=== PATIENT | male | born 1950 | race Caucasian/White ===

== ENCOUNTER 2017-01-26 04:27 | Inpatient (IN) | payer BC ==
[~2017-01-26] VITALS: Ht 180.3 cm; Wt 125.8 kg
[2017-01-26 04:34] VITALS: Ht 180.3 cm; Wt 125.8 kg
[2017-01-26] MEDS ORDERED: ASPIRIN 324 MG CHEW PO STA (04:45)
[2017-01-26 04:57] LABS: BASO % 0.2 %; BASO ABS # 0.02 K/uL (0-0.2); COMPLETE YES; EOS % 2.1 %; HEMATOCRIT 43.8 % (42-52); IG% 0.2 %; LYMPH % 22.4 %; LYMPH ABS # 2.22 K/uL (1.2-3.4); MEAN CELL VOLUME 95.4 fL (80-100); MEAN CORPUSCULAR HEMOGLOBIN 30.9 pg (25-34); MEAN CORPUSCULAR HGB CONC 32.4 g/dl (32-36); MEAN PLATELET VOLUME 9.9 fL (7.4-10.4); MONO % 7.7 %; NEUT % 67.4 %; PLATELET COUNT 251 K/uL (130-400); RED BLOOD COUNT 4.59 M/uL (4.7-6.1); WHITE BLOOD COUNT 9.92 K/uL (4.8-10.8)
--- NOTE | 2017-01-26 05:05 | EMERGENCY ROOM VISIT NOTE ---
History Report prepared by Scribe: Lidya Pope Under the Supervision of: Dr. John Lopez D.O. First contact with patient: 04:44 Chief Complaint: CHEST PAIN Stated Complaint: SOB,CHEST PAIN,JAW PAIN,ARM PAIN Nursing Triage Summary: Pt c/o mid to right sided chest pain for greater than a month. Intermittent and goes down bilateral arms. Pt states he has been having increased shortness of breath as well. History of Present Illness The patient is a 67 year old male who presents to the Emergency Room with complaints of intermittent right sided chest pain for the past 1 month. Tonight he told his he thought he was "going to ", so she urged him to come to the ED. He took 4 baby Aspirin prior to the ED. The patient states his pain radiates into his bilateral arms and he has also experienced some jaw pain. He admits to increasing shortness of breath for the past few months. The patient denies any leg pain but admits to some increased swelling in the legs. He states he has never undergone a cardiac catheterization before. Source of History: patient Onset: 1 month SPRING FORMER HAND Position: chest Timing: intermittent Modifying Factors (Relieving): other (Aspirin) Associated Symptoms: + SOB Review of Systems See HPI for pertinent positives and negatives. A total of ten systems were reviewed and were otherwise negative. Past Medical & Surgical Medical Problems: (1) ACS (acute coronary syndrome) (2) Hypertension (3) WA (myocardial infarction) Social History Smoking Status: Former Smoker Alcohol Use: occasionally Drug Use: none Marital Status: Housing Status: lives with family Occupation Status: retired Current/Historical Medications Scheduled Olmesartan/Hctz (Benicar Hct 40/12.5), 1 TAB PO DAILY Scheduled PRN Diclofenac Sodium (Voltaren), 75 MG PO BID PRN for Pain Allergies Coded Allergies: No Known Allergies (Unverified , 01/26/17) Physical Exam Vital Signs Date Time Temp Pulse Resp B/P (MAP) Pulse Ox O2 Delivery O2 Flow Rate FiO2 01/26/17 05:48 81 18 114/74 96 Room Air 01/26/17 04:54 Room Air 01/26/17 04:52 93 01/26/17 04:52 96 Room Air 01/26/17 04:34 37.0 99 18 127/70 95 Room Air Physical Exam GENERAL: Awake, alert, well-appearing, in no distress HENT: Normocephalic, atraumatic. Oropharynx unremarkable. EYES: Normal conjunctiva. Sclera non-icteric. NECK: Supple. No nuchal rigidity. FROM. No JVD. RESPIRATORY: Crackles. CARDIAC: Tachycardic heart rate, normal rhythm. Extremities warm and well perfused. Pulses equal. ABDOMEN: Soft, non-distended. No tenderness to palpation. No rebound or guarding. No masses. RECTAL: Deferred. MUSCULOSKELETAL: Chest examination reveals no tenderness. The back is symmetrical on inspection without obvious abnormality. There is no CVA tenderness to palpation. No joint edema. LOWER EXTREMITIES: Calves are equal size bilaterally and non-tender. Bilateral LE pitting edema, calves are nontender. No discoloration. NEURO: Normal sensorium. No sensory or motor deficits noted. SKIN: No rash or jaundice noted. Medical Decision & Procedures ER Provider Diagnostic Interpretation: X ray results as stated below per my interpretation and interpretation. Other radiology results as stated below per my review and radiologist interpretation CHEST X-RAY Mild CHF seen on X-Ray. Laboratory Results 01/26/17 04:45 Red Blood Count 4.59, Mean Corpuscular Volume 95.4, Mean Corpuscular Hemoglobin 30.9, Mean Corpuscular Hemoglobin Concent 32.4, Mean Platelet Volume 9.9, Neutrophils (%) (Auto) 67.4, Lymphocytes (%) (Auto) 22.4, Monocytes (%) (Auto) 7.7, Eosinophils (%) (Auto) 2.1, Basophils (%) (Auto) 0.2, Neutrophils # (Auto) 6.69, Lymphocytes # (Auto) 2.22, Monocytes # (Auto) 0.76, Eosinophils # (Auto) 0.21, Basophils # (Auto) 0.02 01/26/17 04:45 Test 01/26/17 04:45 01/26/17 06:31 White Blood Count 9.92 K/uL (4.8-10.8) Red Blood Count 4.59 M/uL (4.7-6.1) Hemoglobin 14.2 g/dL (14.0-18.0) Hematocrit 43.8 % (42-52) Mean Corpuscular Volume 95.4 fL (80-100) Mean Corpuscular Hemoglobin 30.9 pg (25-34) Mean Corpuscular Hemoglobin Concent 32.4 g/dl (32-36) Platelet Count 251 K/uL (130-400) Mean Platelet Volume 9.9 fL (7.4-10.4) Neutrophils (%) (Auto) 67.4 % Lymphocytes (%) (Auto) 22.4 % Monocytes (%) (Auto) 7.7 % Eosinophils (%) (Auto) 2.1 % Basophils (%) (Auto) 0.2 % Neutrophils # (Auto) 6.69 K/uL (1.4-6.5) Lymphocytes # (Auto) 2.22 K/uL (1.2-3.4) Monocytes # (Auto) 0.76 K/uL (0.11-0.59) Eosinophils # (Auto) 0.21 K/uL (0-0.5) Basophils # (Auto) 0.02 K/uL (0-0.2) RDW Standard Deviation 49.7 fL (36.4-46.3) RDW Coefficient of Variation 14.2 % (11.5-14.5) Immature Granulocyte % (Auto) 0.2 % Immature Granulocyte # (Auto) 0.02 K/uL (0.00-0.02) Activated Partial Thromboplast Time 29.2 SECONDS (21.0-31.0) Partial Thromboplastin Ratio 1.1 Anion Gap 8.0 mmol/L (3-11) Est Creatinine Clear Calc Drug Dose 67.3 ml/min Estimated GFR () 59.0 Estimated GFR (Non- 50.9 BUN/Creatinine Ratio 14.7 (10-20) Calcium Level 8.6 mg/dl (8.5-10.1) Total Bilirubin 0.5 mg/dl (0.2-1) Direct Bilirubin 0.1 mg/dl (0-0.2) Aspartate Amino Transf (AST/SGOT) 73 U/L (15-37) Alanine Aminotransferase (ALT/SGPT) 35 U/L (12-78) Alkaline Phosphatase 62 U/L (45-117) Troponin I 6.790 ng/ml (0-0.045) Pro-B-Type Natriuretic Peptide 4508 pg/ml (0-900) Total Protein 7.5 gm/dl (6.4-8.2) Albumin 3.6 gm/dl (3.4-5.0) Lipase 91 U/L (73-393) Laboratory results reviewed by me Medications Administered Medications (Trade) Dose Ordered Sig/Daniel Route Start Time Stop Time Status Last Admin Dose Admin Furosemide (Lasix Inj) 40 mg NOW STAT IV 01/26/17 05:22 01/26/17 05:23 DC 01/26/17 05:45 40 MG Atorvastatin Calcium (Lipitor Tab) 80 mg QAM STAT PO 01/26/17 06:18 01/26/17 06:19 DC 01/26/17 06:33 80 MG Heparin Sodium/ Dextrose 1 ea NOW STAT N/A 01/26/17 06:18 01/26/17 06:19 DC 01/26/17 06:28 1 EA Heparin Sodium/ Dextrose (Heparin 25,000 Unit/500ml D5W) 25,000 unit STK-MED ONCE .ROUTE 01/26/17 06:24 01/26/17 06:25 DC 01/26/17 06:28 25,000 UNIT ECG Indication: chest pain Rate (beats per minute): 110 Rhythm: sinus tachycardia Findings: RBBB, no acute ischemic change, other (Left anterior hemiblock) ED Course 0459: The patient was evaluated in room B7. A complete history and physical exam was performed. 0522: Aspirin 40 mg IV. 0552: Nursing informed me the patients Troponin is 6.79. 0555: I discussed the patients case with Dr. Cooney, [facility] Hospitalist. The patient will be further evaluated. 0601: I reevaluated the patient. He is resting comfortably. I discussed my recommendation he remain in the hospital for further evaluation and management and he verbalized complete understanding and agreement. 0610: I discussed the patients case with Dr. Lane, [facility] Cardiology. The patient will be further evaluated. 0618: Heparin Sodium/Dextrose 1 ea NA, Lipitor 80 mg PO. 0630: Nitroglycerin 2% ointment 1 inch EXT. Medical Decision The differential diagnoses considered include angina, stable angina, ACS, acute WA and CHF. Patient is currently pain-free. Patient had taken aspirin prior arrival. Patient was given IV Lasix. Patient has evidence of acute coronary syndrome with an elevated troponin and elevated BNP. Reevaluation the patient states that he's had a left anterior hemiblock in the past. Patient is currently pain- free. The case was discussed with the hospitalist from [facility] for admission. I've also spoken to cardiology who would like the patient to receive IV heparin, Lipitor, Nitropaste; Medication Reconcilliation Current Medication List: was personally reviewed by me Blood Pressure Screening Patient's blood pressure: Normal blood pressure Blood pressure disposition: Did not require urgent referral Consults Time Called: 05 Consulting Physician: [facility] Returned Call: [phone] I discussed the patients case with [facility]. The patient will be further evaluated. Additional Consults: Time Called: 05 Consulted Physician: Dr. Lane [facility] Returned Call: [phone] Additional Comments: I discussed the patients case with Dr. Lane [facility]. The patient will be further evaluated. Impression Primary Impression: ACS (acute coronary syndrome) Additional Impression: CHF (congestive heart failure) Scribe Attestation The scribe's documentation has been prepared under my direction and personally reviewed by me in its entirety. I confirm that the note above accurately reflects all work, treatment, procedures, and medical decision making performed by me. Departure Information Dispostion Being Evaluated By Hospitalist Referrals No Doctor, Assigned (PCP) Patient Instructions My [facility] Problem Qualifiers
[2017-01-26 05:14] LABS: BUN/CREATININE RATIO 14.7 (10-20); CALCIUM 8.6 mg/dl (8.5-10.1); CREATININE 1.4 mg/dl (0.60-1.40); POTASSIUM 3.8 mmol/L (3.5-5.1)
[2017-01-26] MEDS ORDERED: FUROSEMIDE 40 MG/4 ML VIAL IV STA (05:22)
[2017-01-26] MEDS ORDERED: OLME40TA30 PO (06:07)
[2017-01-26] MEDS ORDERED: DICL75TA2 PO (06:08)
[2017-01-26] MEDS ORDERED: ATORVASTATIN 40 MG TAB PO STA (06:18)
[2017-01-26] MEDS ORDERED: HEPARIN 25000 UNIT/500 ML D5W ONE (06:24)
[2017-01-26 06:25] LABS: PARTIAL THROMBOPLASTIN RATIO 1.1
[2017-01-26] MEDS ORDERED: NITROGLYCERIN OINT 2% 1GM PACKET EXT ONE (06:30)
[2017-01-26] MEDS ORDERED: POTASSIUM CHLORIDE 10 MEQ TABCR PO STA (06:34)
[2017-01-26 06:40] VITALS: O2SAT 97
[2017-01-26] MEDS ORDERED: METOPROLOL TARTRATE 50 MG TAB PO STA (06:43)
[2017-01-26] MEDS ORDERED: NITROGLYCERIN 0.4 MG SL PER TAB CHARGE SL PRN (06:45)
[2017-01-26] MEDS ORDERED: LORAZEPAM 2 MG/ML 1 ML VIAL IV PRN (06:45)
[2017-01-26] MEDS ORDERED: LEVALBUTEROL/IPRATROPIUM NEB INH PRN (06:45)
[2017-01-26] MEDS ORDERED: MoRPHine SULFATE 2 MG/ML CARP IV PRN (06:45)
[2017-01-26] MEDS ORDERED: TRAMADOL HCL 50 MG TAB PO PRN (06:45)
[2017-01-26] MEDS ORDERED: ACETAMINOPHEN 325 MG TAB PO PRN (06:45)
[2017-01-26 06:47] LABS: MAGNESIUM 2.3 mg/dl (1.8-2.4); THYROID STIMULATING HORMONE 0.727 uIu/ml (0.300-4.500)
[2017-01-26 07:00] VITALS: BP 120/78; PULSE 84; TEMP 37; O2SAT 96; BMI 38.7
[2017-01-26 07:38] LABS: CHOLESTEROL/HDL RATIO 5.2
[2017-01-26] MEDS ORDERED: LEVALBUTEROL 1.25MG/0.5ML NEB INH PRN (07:45)
[2017-01-26] MEDS ORDERED: IPRATROPIUM BROMIDE NEB SOLN 0.02% 2.5 ML VIAL INH PRN (08:00)
--- NOTE | 2017-01-26 08:05 | HISTORY & PHYSICAL EXAMINATION ---
DATE OF ADMISSION: 01/26/2017 PRIMARY CARE DOCTOR: Mr. Danish Neves PA-C. CHIEF COMPLAINT: Chest pain, shortness of breath. HISTORY OF PRESENT ILLNESS: History is obtained from the patient, family, ER provider. Medical history significant for old heart attack as per patient, past tobacco abuse. About 12 years ago, patient claims he had an episode of chest pain, diaphoresis. 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 He refused to seek care. The last 2 months, increasing shortness of breath on exertion, fluid retention. Last 2 weeks, intermittent right-sided chest pain, sometimes pleuritic. No cough symptoms. This morning, patient decided it was time to seek care. At the Emergency Room, he received Lasix for CHF and aspirin possible ACS. MEDICAL HISTORY: As above. SURGERIES: Urologic procedures. HOME MEDICATIONS: None. ALLERGIES: No known drug allergies. FAMILY HISTORY: Heart disease, diabetes. PERSONAL AND SOCIAL HISTORY: Past tobacco abuse. No chronic intake of alcoholic beverages. [employer]. REVIEW OF SYSTEMS: As per HPI, all 10 systems reviewed, all other ROS negative. PHYSICAL EXAMINATION: VITAL SIGNS: Blood pressure was noted to be 111/60, pulse rate 90, RR 20_, temperature 37, sats 95 on room air. GENERAL: Noted to be obese, slightly uncomfortable, no respiratory distress, unkempt. SKIN: Normal color, warm. HEENT: [place] palpebral conjunctivae. Noted ptosis. Dry buccal mucosa. NECK: Short, supple. CHEST: Decreased breath sounds. No tenderness. CV: Regular rate and rhythm. Palpable LE pulses. ABDOMEN: Soft, some distension, nontender. EXTREMITIES: No edema, no tenderness. No gross deformities. NEUROLOGIC: Coherent. No gross focality. LABORATORIES: Hemoglobin was noted to be 14.2, hematocrit 42.8, white cell count 10, platelets 251. Sodium 134, potassium 3.8, CO2 24, BUN 20, creatinine 1.4, glucose 161. Troponin 6.79. BNP was 4508. Chest x-ray as per my interpretation, cardiomegaly, CHF, atelectasis. EKG as per my interpretation, rate 110, sinus tachycardia, LAD, LAFB, right bundle-branch block, TWI lateral leads. ASSESSMENT AND PLAN: 1. Right-sided chest pain plus troponin elevation pulmonary embolism versus acute coronary syndrome 2. congestive heart failure subacute symptoms ongoing for about 2 months 3. past tobacco abuse. 4. Hyperglycemia rule out DM PCU. Check D-dimer PE workup if D-dimer abnormal. Diuretic therapy. initiate low-dose beta nam. 2D echo. Cardio consult. RE CHF (ER provider already in touch with Dr. Lane) IV heparin as per exhibit specialist on-call Check hemoglobin A 1C DVT prophylaxis, Heparin. Full code. MTDD
--- NOTE | 2017-01-26 08:12 | DIAGNOSTIC IMAGING REPORT ---
SINGLE VIEW CHEST CLINICAL HISTORY: Atypical chest pain. FINDINGS: An AP, portable, upright chest radiograph is obtained. No prior studies are available for comparison at the time of dictation. The examination is degraded by portable technique and apical lordotic positioning. The heart is enlarged and there is atherosclerotic calcification of the thoracic aorta. There is pulmonary vascular congestion. Bilateral patchy airspace opacities are identified. No large pleural effusion or pneumothorax is seen. The skeletal structures are osteopenic. The bony thorax is grossly intact. Degenerative change is seen throughout the thoracic spine. Calcified joint bodies are noted in the left shoulder. IMPRESSION: 1. Cardiomegaly with evidence of congestive failure. 2. Bilateral airspace opacities are noted. This could represent a component of pulmonary edema and/or multifocal pneumonia. Clinical correlation will be essential. Radiographic follow-up to resolution is recommended. 3. No large pleural effusion is identified. Electronically signed by: Mariano Coleman M.D. 01/26/2017 8:11 AM Dictated Date/Time: 01/26/2017 8:10 AM
[2017-01-26] MEDS ORDERED: PERFLUTREN LIPID MICROSPHERE (DEFINITY) IV ONE (08:22)
[2017-01-26] MEDS ORDERED: METOPROLOL TARTRATE 25 MG TAB PO STA (10:11)
--- NOTE | 2017-01-26 10:11 | ECHOCARDIOGRAM REPORT ---
*NOTICE TO RECEIVING REPUBLICAN AGENCY This information is strictly Confidential and protected under [place] law. [place] law prohibits you from making any further disclosure of this information unless further disclosure is expressly permitted by the written consent of the person to whom it pertains or is authorized by law. A general authorization for the release of medical or other information is not sufficient for this purpose. Hospital accepts no responsibility if the information is made available to any other person, INCLUDING THE PATIENT. Interpretation Summary * Name: ADRIANNA HAWKINS Study Date: 01/26/2017 07:52 AM BP: 110/74 mmHg * Patient Location: C.2T\S\E221\S\1 HR: 85 * : 1950 (M/d/yyyy) Gender: Male Height: 71 in * Age: 67 yrs Ethnicity: [place] Weight: 277 lb * Ordering Physician: Juan Carlos Cooney * Referring Physician: Self, Referred * Performed By: Teresita Cunha RDCS * * Reason For Study: CHF * BSA: 2.4 m2 * The study was technically limited. * There is no comparison study available. * -- Conclusions -- * The left ventricle is mildly dilated. * Left ventricular systolic function is severely reduced. * Ejection Fraction = 20-25%. * The apex, anteroseptum, and anterior chapa are akinetic. * The remaining LV myocardial wall segements are severely hypokinetic to akinetic. * There is no pericardial effusion. Procedure Details * A complete two-dimensional transthoracic echocardiogram was performed (2D, M-mode, Doppler and color flow Doppler). * A contrast injection of Definity was performed to improve assessment of LV function. * Contrast was injected into an intravenous site in the left arm. * One vial of Definity ultrasound contrast was diluted in normal saline to a total volume of 10 ml. A total of '2' ml of solution was administered during imaging. * Lot # [id number] of Definity utilized for procedure. * Expiration date FEB 10. * The attending nurse who injected the contrast agent was Magalie Murray RN. Left Ventricle * The left ventricle is mildly dilated. * There is no thrombus. * There is normal left ventricular wall thickness. * Ejection Fraction = 20-25%. * Left ventricular systolic function is severely reduced. * The apex, anteroseptum, and anterior chapa are akinetic. The remaining LV myocardial wall segements are severely hypokinetic to akinetic. Right Ventricle * The right ventricle is grossly normal size. * The right ventricular systolic function is normal as assessed by tricuspid annular plane systolic excursion (TAPSE) (normal >1.5 cm). Atria * The left atrium is mildly dilated. * Right atrial size is normal. Mitral Valve * The anterior mitral valve leaflet is moderately thickened. * There is no mitral valve stenosis. * There is trace mitral regurgitation. Tricuspid Valve * The tricuspid valve is not well visualized. * There is no tricuspid stenosis. * Significant tricuspid regurgitation is absent. Aortic Valve * The aortic valve is not well visualized. * The aortic valve opens well. * No hemodynamically significant valvular aortic stenosis. * No aortic regurgitation is present. Pulmonic Valve * The pulmonary valve is not well seen, but the Doppler examination is normal without significant regurgitation or stenosis. Great Vessels * The aortic root is normal size. Pericardium/Pleural * There is no pericardial effusion. Left Ventricular Diastolic Function * Grade I diastolic dysfunction, (abnormal relaxation pattern). MMode 2D Measurements and Calculations IVSd 0.88 cm LVIDd 6.5 cm LVIDs 5.0 cm LVPWd 1.2 cm IVS/LVPW 0.70 FS 22.5 % EDV(Teich) 214.9 ml ESV(Teich) 119.7 ml EF(Teich) 44.3 % EDV(cubed) 272.7 ml ESV(cubed) 126.9 ml EF(cubed) 53.5 % LV mass(C)d 305.4 grams LV mass(C)dI 126.1 grams/m\S\2 SV(Teich) 95.2 ml SI(Teich) 39.3 ml/m\S\2 SV(cubed) 145.8 ml SI(cubed) 60.2 ml/m\S\2 Ao root diam 3.5 cm Ao root area 9.7 cm\S\2 ACS 2.1 cm LA dimension 3.9 cm asc Aorta Diam 3.7 cm LA/Ao 1.1 LVOT diam 2.0 cm LVOT area 3.2 cm\S\2 LVAd ap4 41.6 cm\S\2 LVLd ap4 9.1 cm EDV(MOD-sp4) 158.0 ml EDV(sp4-el) 161.5 ml LVAs ap4 34.7 cm\S\2 LVLs ap4 8.9 cm ESV(MOD-sp4) 111.7 ml ESV(sp4-el) 114.9 ml EF(MOD-sp4) 29.3 % EF(sp4-el) 28.8 % LVAd ap2 38.7 cm\S\2 LVLd ap2 9.0 cm EDV(MOD-sp2) 132.5 ml EDV(sp2-el) 141.4 ml LVAs ap2 33.4 cm\S\2 LVLs ap2 8.9 cm ESV(MOD-sp2) 99.8 ml ESV(sp2-el) 105.9 ml EF(MOD-sp2) 24.7 % EF(sp2-el) 25.1 % LVLd %diff -0.79 % EDV(MOD-bp) 144.6 ml LVLs %diff 0.42 % ESV(MOD-bp) 105.2 ml EF(MOD-bp) 27.2 % SV(MOD-sp4) 46.4 ml SI(MOD-sp4) 19.2 ml/m\S\2 SV(MOD-sp2) 32.7 ml SI(MOD-sp2) 13.5 ml/m\S\2 SV(MOD-bp) 39.4 ml SI(MOD-bp) 16.3 ml/m\S\2 SV(sp4-el) 46.6 ml SI(sp4-el) 19.2 ml/m\S\2 SV(sp2-el) 35.6 ml SI(sp2-el) 14.7 ml/m\S\2 Doppler Measurements and Calculations MV E max anthony 70.8 cm/sec MV A max anthony 82.5 cm/sec MV E/A 0.86 MV dec time 0.22 sec Ao V2 max 127.6 cm/sec Ao max PG 6.5 mmHg Ao max PG (full) 0.25 mmHg SNEHAL(V,A) 3.1 cm\S\2 SNEHAL(V,D) 3.1 cm\S\2 AI max anthony 329.8 cm/sec AI max PG 43.5 mmHg AI dec slope 190.5 cm/sec\S\2 AI P1/2t 507.0 msec LV V1 max PG 6.3 mmHg LV V1 max 125.1 cm/sec PA V2 max 120.8 cm/sec PA max PG 5.8 mmHg PA acc slope 1040.8 cm/sec\S\2 PA acc time 0.10 sec TR max anthony 93.8 cm/sec PA pr(Accel) 36.2 mmHg
[2017-01-26 11:01] LABS: PROTHROMBIN TIME (PATIENT) 10.7 SECONDS (9.0-12.0)
--- NOTE | 2017-01-26 11:02 | CARDIOLOGY CONSULTATION ---
DATE OF CONSULTATION: 01/26/2017 REFERRING PHYSICIAN: Dr. Juan Carlos Cooney. REASON FOR CONSULTATION: NSTEMI. HISTORY OF PRESENT ILLNESS: Mr. Chong is a 67-year-old gentleman who reports a 3-month history of progressive dyspnea on exertion as well as a 2-3 week history of chest discomfort. He describes waxing and waning chest pain described as a right-sided ache. Pain could last a few seconds up to a few minutes. Pain became somewhat worse last evening. He states, "I have had enough" and decided to come to the ER at approximately 4:00 a.m. In the ER, patient noted to be in congestive heart failure. Troponin is moderately elevated as well. The patient was treated with intravenous furosemide. An IV heparin infusion was initiated. He was admitted to the progressive care unit. The patient has diuresed moderately. He is feeling better from a respiratory standpoint. Denies any recurrent chest discomfort since arrival to the floor. Repeat troponins are pending. 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 He did not seek medical attention at that time. He has no prior history of stress testing or cardiac catheterization. He has never been seen by a fire inspector in the past. Currently, he is resting comfortably. Denies orthopnea, PND, or lower extremity edema. No palpitations, lightheadedness, dizziness, syncope or near syncope. REVIEW OF SYSTEMS: The pertinent positive noted above, comprehensive 10-system review is otherwise negative. PAST MEDICAL HISTORY: 1. Hypertension. 2. Possible history of myocardial infarction 12 years ago. PAST SURGICAL HISTORY: Denied. SOCIAL HISTORY: Former tobacco abuse. and lives with his . 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 OUTPATIENT MEDICATIONS: Benicar/HCTZ 40/12.5 one tablet daily, diclofenac 75 mg twice daily as needed. ALLERGIES: No known drug allergies. ECG on admission demonstrates sinus tachycardia with a right bundle-branch block, left anterior fascicular block, left ventricular hypertrophy, secondary ST-T wave abnormality. Chest x-ray on admission demonstrates congestive heart failure. LABORATORY DATA: D-dimer is less than 190. White blood cell count 9.92, hemoglobin is 14.2, platelet count is 251. Sodium 134, potassium 3.8, chloride 102, CO2 24, BUN 21, creatinine 1.40. Troponin 6.790. ProBNP 4508. Lipase is 91. Telemetry demonstrates sinus rhythm. PHYSICAL EXAMINATION: VITAL SIGNS: Temperature is 37 degrees centigrade, pulse 84 beats per minute and regular, respiratory rate 16 breaths per minute, blood pressure 120/70, SaO2 is 96% on room air. GENERAL: NAD, obese, awake, alert and oriented x3. HEENT: His mucous membranes are moist. There is no scleral icterus. The conjunctivae are pink. NECK: Supple. There is no JVD. HJR in the upright position. LUNGS: Demonstrate scattered crackles at the bases. No rhonchi or wheeze. HEART: Regular with a normal S1 and S2. There is no murmur, rub, or gallop. ABDOMEN: Soft and nontender. There is no rebound or guarding, normal bowel sounds. EXTREMITIES: Warm and dry without clubbing, cyanosis or edema. Dorsalis pedis pulses are 2/4 bilateral. Radial pulses are 2/4 bilateral. NEUROLOGIC: Demonstrates no focal deficit. FINAL IMPRESSION: 1. Non-ST elevation myocardial infarction. 2. Acute decompensated systolic heart failure. 3. Hypertension -- controlled. 4. Dyslipidemia -- patient received one dose of atorvastatin in the ED. 5. Possible remote history of myocardial infarction. 6. Former tobacco abuse. PLAN AND RECOMMENDATIONS: Intravenous heparin has been initiated. He will continue aspirin, high-dose statin at this time. I have ordered low-dose beta-nam therapy, Lopressor 12.5 mg twice daily. The patient is agreeable to a dose x1 now. A 0.5 inch of nitro paste will be placed topically for afterload reduction in the setting of acute systolic heart failure. I have ordered an additional dose of IV furosemide for 3:00 p.m. The risks, benefits, and alternatives to cardiac catheterization with coronary angiography were discussed at length. The patient is agreeable. Tentative plan for cardiac catheterization in the a.m., pending review of a.m. labs. Continue telemetry monitoring during hospitalization. Urgent cardiac catheterization would be considered with any recurrent anginal symptoms at rest despite optimal medical therapy. Thank you for allowing me to take part in the care of your patient.
[2017-01-26] MEDS: NITROGLYCERIN OINT 2% 1GM PACKET EXT SCH ×3 (11:30→22:43)
[2017-01-26 11:44] VITALS: BP 116/73; PULSE 81; TEMP 36.6; O2SAT 96
[2017-01-26 12:48] LABS: PARTIAL THROMBOPLASTIN RATIO 1.6
[2017-01-26] MEDS: HEPARIN 25,000 UNIT/500ML D5W 500 ML IV PRN ×3 (13:27→21:58)
[2017-01-26] MEDS ORDERED: HEPARIN IV BOLUS 4,000 UNIT in SYRINGE 0 ML IV ONE (13:30)
[2017-01-26] MEDS ORDERED: FUROSEMIDE INJ 40 MG in SYRINGE 0 ML IV ONE ×2 (15:00→16:00)
[2017-01-26 15:57] VITALS: BP 104/64; PULSE 78; TEMP 37.1; O2SAT 95
[2017-01-26] MEDS: METOPROLOL TARTRATE 25 MG TAB PO SCH (17:29)
--- NOTE | 2017-01-26 17:42 | Progress Note ---
Progress Note Date of Service Jan 26, 2017. Progress Note Patient seen and examined at bedside General: no acute distress Lungs: CTABL Chest: no chest pain Abdomen: soft, nontender, + bowel sounds Extremities: no edema Neuro: awake and alert, oriented to person, place, time Troponins during the day 6.79 to 9 to 11.2 Cardiac echo: The left ventricle is mildly dilated. Left ventricular systolic function is severely reduced. Ejection Fraction = 20-25%. The apex, anteroseptum, and anterior chapa are akinetic. The remaining LV myocardial wall segements are severely hypokinetic to akinetic. There is no pericardial effusion Patient's EKGs do not show evidence of ST Elevation He has been treated with IV heparin throughout the day for NSTEMI Patient is scheduled for cardiac cath on Friday01/27/17 Patient is not in acute distress and mental status at baseline. Have been visiting patient's room throughout the day and no apparent chest pain as per patient. With elevations in troponins have moved up the Metoprolol Tartrate 12.5mg scheduled from 9 PM to 5:30 PM. Continue to monitor on telemetry. May not need another dose of 12..5 mg Metoprolol if heart rate controlled. Will continue trending troponin. As per Dr. Lane, if patient experiences chest pain will need to call cardiology urgently because patient may need emergent cardiac cath in that situation.
[2017-01-26 20:00] VITALS: BP 131/77; PULSE 83; TEMP 36.7; O2SAT 94
[2017-01-26 21:06] LABS: PARTIAL THROMBOPLASTIN RATIO 2.7
[2017-01-27] VITALS (12 sets, daily range): BP systolic 102–113; BP diastolic 63–72; PULSE 69–77; TEMP 37–37.4; O2SAT 94–95
[2017-01-27 03:40] LABS: BASO % 0.4 %; BASO ABS # 0.03 K/uL (0-0.2); COMPLETE YES; EOS % 1.9 %; HEMATOCRIT 37.4 % (42-52); IG% 0.2 %; LYMPH % 21.4 %; LYMPH ABS # 1.83 K/uL (1.2-3.4); MEAN CELL VOLUME 94.7 fL (80-100); MEAN CORPUSCULAR HEMOGLOBIN 31.4 pg (25-34); MEAN CORPUSCULAR HGB CONC 33.2 g/dl (32-36); MEAN PLATELET VOLUME 9.7 fL (7.4-10.4); MONO % 8.4 %; NEUT % 67.7 %; PLATELET COUNT 205 K/uL (130-400); RED BLOOD COUNT 3.95 M/uL (4.7-6.1); WHITE BLOOD COUNT 8.56 K/uL (4.8-10.8)
[2017-01-27] MEDS: NITROGLYCERIN OINT 2% 1GM PACKET EXT SCH ×3 (03:55→16:00)
[2017-01-27 03:58] LABS: BUN/CREATININE RATIO 13.9 (10-20); CREATININE 1.22 mg/dl (0.60-1.40); POTASSIUM 3.4 mmol/L (3.5-5.1)
[2017-01-27 04:03] LABS: PARTIAL THROMBOPLASTIN RATIO 2.3
[2017-01-27] MEDS ORDERED: POTASSIUM CHLORIDE 20 MEQ TABCR PO STA (07:02)
[2017-01-27 08:32] LABS: ESTIMATED AVERAGE GLUCOSE 123 mg/dl; HA1C FLAG Normal (Normal)
[2017-01-27] MEDS ORDERED: ASPIRIN 325 MG ECTAB PO SCH (09:00)
[2017-01-27] MEDS ORDERED: MIDAZOLAM HCL 1 MG/ML 2ML VIAL ONE (09:53)
[2017-01-27] MEDS ORDERED: NITROGLYCERIN/D5W 100MCG/ML 20ML SYR ONE (09:54)
[2017-01-27] MEDS ORDERED: HEPARIN SOD (PORCINE) 1000 UNIT/ML 10 ML VIAL ONE (09:54)
[2017-01-27] MEDS ORDERED: FENTANYL CITRATE INJ 50 MCG/1 ML 2 ML VIAL ONE (09:54)
[2017-01-27] MEDS ORDERED: NiCARDipine HCL INJ 2.5 MG/ML 10 ML AMP ONE (09:54)
--- NOTE | 2017-01-27 11:14 | Procedure Note ---
Pre-Mod Sedation Assessment General Date of Moderate Sedation: Jan 27, 2017. Vital Signs: Vital Signs Past 12 Hours Date Time Temp Pulse Resp B/P (MAP) Pulse Ox O2 Delivery O2 Flow Rate FiO2 01/27/17 11:10 74 16 115/66 (82) 96 Room Air 01/27/17 08:00 Room Air 01/27/17 07:44 37.3 70 20 107/65 (79) 94 Room Air 01/27/17 04:30 37.3 71 20 104/66 95 Room Air 01/27/17 04:00 37.3 71 20 104/66 (79) 95 Room Air 01/27/17 04:00 Room Air 01/27/17 00:37 37.2 77 20 102/63 (76) 95 Room Air 01/27/17 00:00 Room Air Review Cardiovascular: regular rate, rhythm, no edema, no gallop Abdomen: normal bowel sounds, non tender, soft, no organomegaly Lungs: chest non-tender, lungs clear, normal breath sounds Pre-Sedation Airway Assessment Oral Cavity: WNL Short Thick Neck: No Hx of Sleep Apnea: No Smoking Status: Current Every Day Smoker Mallampati Classification: Class III ASA Classification: Class IV Procedure Planning Contraindications-for Mod Sed: None Yes Notes The planned sedation has been discussed with the patient and consent obtained. I have identified the patient, determined the appropriateness of sedation and have assessed the patient immediately prior to the procedure. All medicine(s) and interventions are by my order.
--- NOTE | 2017-01-27 11:15 | Procedure Note ---
Post-Mod Sedation Assessment General Date of Moderate Sedation Jan 27, 2017. Vital Signs: Vital Signs Past 12 Hours Date Time Temp Pulse Resp B/P (MAP) Pulse Ox O2 Delivery O2 Flow Rate FiO2 01/27/17 11:10 74 16 115/66 (82) 96 Room Air 01/27/17 08:00 Room Air 01/27/17 07:44 37.3 70 20 107/65 (79) 94 Room Air 01/27/17 04:30 37.3 71 20 104/66 95 Room Air 01/27/17 04:00 37.3 71 20 104/66 (79) 95 Room Air 01/27/17 04:00 Room Air 01/27/17 00:37 37.2 77 20 102/63 (76) 95 Room Air 01/27/17 00:00 Room Air Review - Discharge Criteria Vital Signs Stable: Yes Alert/Oriented/Conversant: Yes Returned to Baseline Mental St: Yes Nausea Absent/Minimal: Yes Pain/Discomfort/Absent/Minimal: Yes Normal/Baseline Respirations: Yes Active Bleeding?: No Pt Received D/C Instructions: N/A Prescriptions Given: None Specific Proced. D/C Criteria Distal Pulses Present (Cardiac: Yes Groin site assessed-Card Cath: N/A Voided Prior To Discharge: N/A Discharged Patients Adult Escort/Transportation: N/A
--- NOTE | 2017-01-27 11:30 | Cardiac Catheterization ---
Procedure Note Procedure Date Jan 27, 2017. Pre-Procedure Diagnosis Non STEMI AUC Score 8 Post-Procedure Diagnosis Severe CAD Procedure(s) Performed Coronary Angiography Caustic Loader Dr. Lane Food Service Specialist(s) Chandler RILEY Estimated Blood Loss 5cc Medication(s) Heparin, Nicardipine, Nitroglycerin, Versed, Lidocaine 1% Summary of Findings 100% proximal LAD occlusion - fills via bridging collaterals and right to left collaterals. Severe mid Lcx stenosis. Hemodynamics Rest Ao: 92/72/53 Final Ao: 93/74/56 LV: N/A Recommendations CABG Specimens None Radiation Exposure (mGy) 205 Contrast (mls) 70 Anesthesia moderate sedation. start 1040. end 1110. Sedation monitor Mercedes Valencia RN Procedural Complication(s) None Disposition PCU ACC Data Cardiac Status Clinical evaluation leading to the procedure CAD Presntation: Non STEMI Anginal Classification: CCS IV Heart Failure: Yes, NYHA Class: CCS III Cardiogenic Shock w/in 24Hrs: No Cardiac Arrest w/in 24Hrs: No Imaging studies past 6 months: No Stress studies past 6 months: No Coronary Anatomy Dominant: Right Left Main (% Stenosis): Mid (50% diffuse) LAD (% Stenosis): Proximal (100% ), Mid (fill via bridging and right to left collaterals) Circumflex (% Stenosis): Ostial (80% ostial stenosis of atrial branch vessel), Proximal (90%) L PL2 (% Stenosis): Proximal (80%) RCA (% Stenosis): Mid (40%) R PDA (% Stenosis): Ostial (mild diffuse luminal irregularities (10%)) R PL1 (% Stenosis): Ostial (Mild diffuse luminal irregularities (10%)) Ramus (% Stenosis): Ostial (moderate caliber vessel with luminal irregularties (10%)) Diagnostic Status: Urgent Closure Device Percutaneous Entry Location: Radial Closure Device: Radial Band Intraprocedure Events Significant Dissection: No Perforation: No
[2017-01-27] MEDS: METOPROLOL TARTRATE 25 MG TAB PO SCH ×2 (12:54→21:56)
[2017-01-27] MEDS ORDERED: ATORVASTATIN 40 MG TAB PO ONE (13:15)
--- NOTE | 2017-01-27 14:10 | Progress Note ---
Internal Med Progress Note Date of Service: Jan 27, 2017. Provider Documentation: SUBJECTIVE: Patient seen and examined before and after cardiac cath. Patient continues to report he is breathing well and denies chest pain. He is aware of his abnormal cardiac cath results OBJECTIVE: GENERAL: no acute distress SKIN: Normal color, warm. HEENT: EOMI, no exudates NECK: trachea midline CHEST: Lungs clear to auscultation CV: Regular rate and rhythm ABDOMEN: Soft, some distension, nontender. EXTREMITIES: No edema, no tenderness. No gross deformities. NEUROLOGIC: Coherent. No gross focality. ASSESSMENT & PLAN: This is a 67 year old M treated for NSTEMI in [facility] from 01/26/17. Found to have troponins elevated (6.97 and peaking to 11.4 before downtrending) treated with IV heparin drip, found to have acute decompensated heart failure with EF of 20 to 25% for which patient received IV Lasix. Was given statin and Metoprolol 12.5 mg BID. Cardiac cath on 01/27/17 with multi vessel disease, no stents placed, and returns from cardiac cath on heparin IV again until waiting for transfer to higher level [facility] for likely coronary bypass 01/26/17 CXR FINDINGS: An AP, portable, upright chest radiograph is obtained. No prior studies are available for comparison at the time of dictation. The examination is degraded by portable technique and apical lordotic positioning. The heart is enlarged and there is atherosclerotic calcification of the thoracic aorta. There is pulmonary vascular congestion. Bilateral patchy airspace opacities are identified. No large pleural effusion or pneumothorax is seen. The skeletal structures are osteopenic. The bony thorax is grossly intact. Degenerative change is seen throughout the thoracic spine. Calcified joint bodies are noted in the left shoulder. IMPRESSION: 1. Cardiomegaly with evidence of congestive failure. 2. Bilateral airspace opacities are noted. This could represent a component of pulmonary edema and/or multifocal pneumonia. Clinical correlation will be essential. Radiographic follow-up to resolution is recommended. 3. No large pleural effusion is identified. 01/26/17 Echocardiogram -- Conclusions -- The left ventricle is mildly dilated. Left ventricular systolic function is severely reduced. Ejection Fraction = 20-25%. The apex, anteroseptum, and anterior chapa are akinetic. The remaining LV myocardial wall segements are severely hypokinetic to akinetic. There is no pericardial effusion. Left Ventricle The left ventricle is mildly dilated. There is no thrombus. There is normal left ventricular wall thickness. Ejection Fraction = 20-25%. Left ventricular systolic function is severely reduced. The apex, anteroseptum, and anterior chapa are akinetic. The remaining LV myocardial wall segements are severely hypokinetic to akinetic. Right Ventricle The right ventricle is grossly normal size. The right ventricular systolic function is normal as assessed by tricuspid annular plane systolic excursion (TAPSE) (normal >1.5 cm). Atria The left atrium is mildly dilated. Right atrial size is normal. Mitral Valve The anterior mitral valve leaflet is moderately thickened. There is no mitral valve stenosis. There is trace mitral regurgitation. Tricuspid Valve The tricuspid valve is not well visualized. There is no tricuspid stenosis. Significant tricuspid regurgitation is absent. Aortic Valve The aortic valve is not well visualized. The aortic valve opens well. No hemodynamically significant valvular aortic stenosis. No aortic regurgitation is present. Pulmonic Valve The pulmonary valve is not well seen, but the Doppler examination is normal without significant regurgitation or stenosis. Great Vessels The aortic root is normal size. Pericardium/Pleural There is no pericardial effusion. Left Ventricular Diastolic Function Grade I diastolic dysfunction, (abnormal relaxation pattern). Cardiac cath 01/27/17 Dominant: Right Left Main (% Stenosis): Mid (50% diffuse) LAD (% Stenosis): Proximal (100% ), Mid (fill via bridging and right to left collaterals) Circumflex (% Stenosis): Ostial (80% ostial stenosis of atrial branch vessel), Proximal (90%) L PL2 (% Stenosis): Proximal (80%) RCA (% Stenosis): Mid (40%) R PDA (% Stenosis): Ostial (mild diffuse luminal irregularities (10%)) R PL1 (% Stenosis): Ostial (Mild diffuse luminal irregularities (10%)) Ramus (% Stenosis): Ostial (moderate caliber vessel with luminal irregularties (10%)) Other Health Problems Hypertension Hypokalemia serum potassium 3.4 on 01/27/17 and 60 meq of potassium ordered Disposition: Patient waiting transfer to [facility] [place] for [facility] coronary bypass as stents would not be placed in cardiac cath on 01/27 Vital Signs: Date Time Temp Pulse Resp B/P (MAP) Pulse Ox O2 Delivery O2 Flow Rate FiO2 01/27/17 12:00 Room Air 01/27/17 11:42 37.1 72 20 103/64 (77) 95 Room Air 01/27/17 11:20 Room Air 01/27/17 11:15 Room Air 01/27/17 11:10 74 16 115/66 (82) 96 Room Air 01/27/17 08:00 Room Air 01/27/17 07:44 37.3 70 20 107/65 (79) 94 Room Air 01/27/17 04:30 37.3 71 20 104/66 95 Room Air 01/27/17 04:00 37.3 71 20 104/66 (79) 95 Room Air 01/27/17 04:00 Room Air 01/27/17 00:37 37.2 77 20 102/63 (76) 95 Room Air 01/27/17 00:00 Room Air 01/26/17 20:00 Room Air 01/26/17 20:00 36.7 83 22 131/77 (95) 94 Room Air 01/26/17 16:00 Room Air 01/26/17 15:57 37.1 78 20 104/64 (77) 95 Lab Results: Results Past 24 Hours Test 01/26/17 15:47 01/26/17 19:28 01/26/17 21:57 01/27/17 03:21 Range/Units Troponin I 11.200 11.400 9.970 0-0.045 ng/ml Activated Partial Thromboplast Time 71.1 58.8 21.0-31.0 SECONDS Partial Thromboplastin Ratio 2.7 2.3 White Blood Count 8.56 4.8-10.8 K/uL Red Blood Count 3.95 4.7-6.1 M/uL Hemoglobin 12.4 14.0-18.0 g/dL Hematocrit 37.4 42-52 % Mean Corpuscular Volume 94.7 80-100 fL Mean Corpuscular Hemoglobin 31.4 25-34 pg Mean Corpuscular Hemoglobin Concent 33.2 32-36 g/dl Platelet Count 205 130-400 K/uL Mean Platelet Volume 9.7 7.4-10.4 fL Neutrophils (%) (Auto) 67.7 % Lymphocytes (%) (Auto) 21.4 % Monocytes (%) (Auto) 8.4 % Eosinophils (%) (Auto) 1.9 % Basophils (%) (Auto) 0.4 % Neutrophils # (Auto) 5.80 1.4-6.5 K/uL Lymphocytes # (Auto) 1.83 1.2-3.4 K/uL Monocytes # (Auto) 0.72 0.11-0.59 K/uL Eosinophils # (Auto) 0.16 0-0.5 K/uL Basophils # (Auto) 0.03 0-0.2 K/uL RDW Standard Deviation 48.5 36.4-46.3 fL RDW Coefficient of Variation 14.1 11.5-14.5 % Immature Granulocyte % (Auto) 0.2 % Immature Granulocyte # (Auto) 0.02 0.00-0.02 K/uL Sodium Level 133 136-145 mmol/L Potassium Level 3.4 3.5-5.1 mmol/L Chloride Level 100 98-107 mmol/L Carbon Dioxide Level 28 21-32 mmol/L Anion Gap 5.0 3-11 mmol/L Blood Urea Nitrogen 17 7-18 mg/dl Creatinine 1.22 0.60-1.40 mg/dl Est Creatinine Clear Calc Drug Dose 77.2 ml/min Estimated GFR () 69.7 Estimated GFR (Non- 60.1 BUN/Creatinine Ratio 13.9 10-20 Random Glucose 136 70-99 mg/dl Calcium Level 8.0 8.5-10.1 mg/dl
[2017-01-27] MEDS ORDERED: GLUCOSE 10 TABS/TUBE PO PRN (14:30)
[2017-01-27] MEDS ORDERED: GLUCAGON FOR INJ 1 MG VIAL SQ PRN (14:30)
[2017-01-27] MEDS ORDERED: DEXTROSE 50% 50 ML SYR IV PRN (14:30)
[2017-01-27] MEDS ORDERED: GLUCOSE 40% GEL 15 GM TUBE PO PRN (14:30)
--- NOTE | 2017-01-27 14:34 | Discharge Summary ---
Discharge Summary Date of Service Jan 27, 2017. Discharge Summary Admission Date: Jan 26, 2017 at 06:02 Discharge Date: Jan 27, 2017 Discharge Disposition: Acute care facility ([facility]) Principal Diagnosis: NSTEMI, acute decompensated CHF, multi-vessel coronary artery disease Procedures: cardiac cath on 01/27/17 Admission Information HPI (per Admitting provider): CHIEF COMPLAINT: Chest pain, shortness of breath. HISTORY OF PRESENT ILLNESS: History is obtained from the patient, family, ER provider. Medical history significant for old heart attack as per patient, past tobacco abuse. About 12 years ago, patient claims he had an episode of chest pain, diaphoresis. 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 He refused to seek care. The last 2 months, increasing shortness of breath on exertion, fluid retention. Last 2 weeks, intermittent right-sided chest pain, sometimes pleuritic. No cough symptoms. This morning, patient decided it was time to seek care. At the Emergency Room, he received Lasix for CHF and aspirin possible ACS. MEDICAL HISTORY: As above. SURGERIES: Urologic procedures. HOME MEDICATIONS: None. ALLERGIES: No known drug allergies. FAMILY HISTORY: Heart disease, diabetes. PERSONAL AND SOCIAL HISTORY: Past tobacco abuse. No chronic intake of alcoholic beverages. [employer]. REVIEW OF SYSTEMS: As per HPI, all 10 systems reviewed, all other ROS negative. Physical Exam (per Admitting): PHYSICAL EXAMINATION: VITAL SIGNS: Blood pressure was noted to be 111/60, pulse rate 90, RR 20_, temperature 37, sats 95 on room air. GENERAL: Noted to be obese, slightly uncomfortable, no respiratory distress, unkempt. SKIN: Normal color, warm. HEENT: [place] palpebral conjunctivae. Noted ptosis. Dry buccal mucosa. NECK: Short, supple. CHEST: Decreased breath sounds. No tenderness. CV: Regular rate and rhythm. Palpable LE pulses. ABDOMEN: Soft, some distension, nontender. EXTREMITIES: No edema, no tenderness. No gross deformities. NEUROLOGIC: Coherent. No gross focality. Hospital Course This is a 67 year old M treated for NSTEMI in [facility] from 01/26/17. Found to have troponins elevated (6.97 and peaking to 11.4 before downtrending) treated with IV heparin drip, found to have acute decompensated heart failure with EF of 20 to 25% for which patient received IV Lasix. Was given statin and Metoprolol 12.5 mg BID. Cardiac cath on 01/27/17 with multi vessel disease, no stents placed, and returns from cardiac cath on heparin IV again until waiting for transfer to higher level of [facility] for likely coronary bypass 01/26/17 CXR FINDINGS: An AP, portable, upright chest radiograph is obtained. No prior studies are available for comparison at the time of dictation. The examination is degraded by portable technique and apical lordotic positioning. The heart is enlarged and there is atherosclerotic calcification of the thoracic aorta. There is pulmonary vascular congestion. Bilateral patchy airspace opacities are identified. No large pleural effusion or pneumothorax is seen. The skeletal structures are osteopenic. The bony thorax is grossly intact. Degenerative change is seen throughout the thoracic spine. Calcified joint bodies are noted in the left shoulder. IMPRESSION: 1. Cardiomegaly with evidence of congestive failure. 2. Bilateral airspace opacities are noted. This could represent a component of pulmonary edema and/or multifocal pneumonia. Clinical correlation will be essential. Radiographic follow-up to resolution is recommended. 3. No large pleural effusion is identified. 01/26/17 Echocardiogram -- Conclusions -- The left ventricle is mildly dilated. Left ventricular systolic function is severely reduced. Ejection Fraction = 20-25%. The apex, anteroseptum, and anterior chapa are akinetic. The remaining LV myocardial wall segements are severely hypokinetic to akinetic. There is no pericardial effusion. Left Ventricle The left ventricle is mildly dilated. There is no thrombus. There is normal left ventricular wall thickness. Ejection Fraction = 20-25%. Left ventricular systolic function is severely reduced. The apex, anteroseptum, and anterior chapa are akinetic. The remaining LV myocardial wall segements are severely hypokinetic to akinetic. Right Ventricle The right ventricle is grossly normal size. The right ventricular systolic function is normal as assessed by tricuspid annular plane systolic excursion (TAPSE) (normal >1.5 cm). Atria The left atrium is mildly dilated. Right atrial size is normal. Mitral Valve The anterior mitral valve leaflet is moderately thickened. There is no mitral valve stenosis. There is trace mitral regurgitation. Tricuspid Valve The tricuspid valve is not well visualized. There is no tricuspid stenosis. Significant tricuspid regurgitation is absent. Aortic Valve The aortic valve is not well visualized. The aortic valve opens well. No hemodynamically significant valvular aortic stenosis. No aortic regurgitation is present. Pulmonic Valve The pulmonary valve is not well seen, but the Doppler examination is normal without significant regurgitation or stenosis. Great Vessels The aortic root is normal size. Pericardium/Pleural There is no pericardial effusion. Left Ventricular Diastolic Function Grade I diastolic dysfunction, (abnormal relaxation pattern). Cardiac cath 01/27/17 Dominant: Right Left Main (% Stenosis): Mid (50% diffuse) LAD (% Stenosis): Proximal (100% ), Mid (fill via bridging and right to left collaterals) Circumflex (% Stenosis): Ostial (80% ostial stenosis of atrial branch vessel), Proximal (90%) L PL2 (% Stenosis): Proximal (80%) RCA (% Stenosis): Mid (40%) R PDA (% Stenosis): Ostial (mild diffuse luminal irregularities (10%)) R PL1 (% Stenosis): Ostial (Mild diffuse luminal irregularities (10%)) Ramus (% Stenosis): Ostial (moderate caliber vessel with luminal irregularties (10%)) Other Health Problems Hypertension Hypokalemia serum potassium 3.4 on 01/27/17 and 60 meq of potassium ordered Disposition: Patient waiting transfer to [facility] [place] for [facility] coronary bypass as stents would not be placed in cardiac cath on 01/27 Total time spent on discharge = 60 minutes This includes examination of the patient, discharge planning, medication reconciliation, and communication with other providers. Discharge Instructions TRANSFER TO [facility] IN [place]
[2017-01-27] MEDS ORDERED: POTASSIUM CHLORIDE 20 MEQ TABCR PO ONE (15:00)
[2017-01-27] MEDS: INSULIN ASPART 100 UNITS/ML 3 ML PEN SC SCH ×2 (16:15→21:00)
[2017-01-27] MEDS: HEPARIN 25,000 UNIT/500ML D5W 500 ML IV PRN (18:30)
[2017-01-28] MEDS ORDERED: ATORVASTATIN 40 MG TAB PO SCH (09:00)
--- NOTE | 2017-01-29 08:15 | EDITING REQUIRED CODING QUERY ---
CONGESTIVE HEART FAILURE To Promote full compliance with coding requirements relating to patient care, physician participation is requested in all cases of lead software tester uncertainty. Please assist us with the following questions. A diagnosis of Congestive Heart Failure is documented in the patient's medical record. To accurately code this diagnosis and to compare patient severity, we ask that you specify the type of heart failure by placing an X within the parenthesis (x). SYSTOLIC HEART FAILURE (x) Acute ( ) Chronic ( ) Acute on Chronic ( ) Rheumatic ( ) Unknown As per cardiology consultation on 01/26/17, Diagnosis includes 1. Non-ST elevation myocardial infarction. 2. Acute decompensated systolic heart failure. 3. Hypertension -- controlled. 4. Dyslipidemia -- patient received one dose of atorvastatin in the ED. 5. Possible remote history of myocardial infarction. 6. Former tobacco abuse. DIASTOLIC HEART FAILURE ( ) Acute ( ) Chronic ( ) Acute on Chronic ( ) Rheumatic ( ) Unknown COMBINED SYSTOLIC AND DIASTOLIC HEART FAILURE ( ) Acute ( ) Chronic ( ) Acute on Chronic ( ) Rheumatic ( ) Unknown Was the CHF Present On Admission? Please check the appropriate box: ( ) Present on Admission ( ) Not Present On Admission ( ) Clinically undetermined Thank you for your time, JULIANA Flores, AUDOGRAPH OPERATOR
== END 2017-01-27 21:45 | disposition short-term general hospital (02) | DRG 280 ==
LOC: C.EDB 04:30 → C.2T 06:02 → ENRESERV 06:30
PROVIDERS: ADMIT Internal Medicine; ATTEND Hospitalist
PROC: B2111ZZ Fluoroscopy of Multiple Coronary Arteries using Low Osmolar Contrast (ICD-10-PCS; principal; 2017-01-27 10:05)
DX: I21.4 Non-ST elevation (NSTEMI) myocardial infarction (principal); I50.21 Acute systolic (congestive) heart failure; I25.10 Atherosclerotic heart disease of native coronary artery without angina pectoris; I25.2 Old myocardial infarction; I11.0 Hypertensive heart disease with heart failure; E87.6 Hypokalemia; R73.9 Hyperglycemia, unspecified; E78.5 Hyperlipidemia, unspecified; E66.9 Obesity, unspecified; Z68.38 Body mass index [BMI] 38.0-38.9, adult; Z87.891 Personal history of nicotine dependence; Z79.899 Other long term (current) drug therapy; Z79.1 Long term (current) use of non-steroidal anti-inflammatories (NSAID)

== ENCOUNTER 2017-09-30 04:01 | Emergency (ER) | payer OTHER, MEDICARE ==
[~2017-09-30] VITALS: Ht 180.3 cm; Wt 116.6 kg
[~2017-09-30 04:01] MED LIST: DICL75TA2 PO; OLME40TA30 PO
[2017-09-30 04:07] VITALS: TEMP 36.6; Ht 180.3 cm; Wt 116.6 kg
--- NOTE | 2017-09-30 04:30 | EMERGENCY ROOM VISIT NOTE ---
History Report prepared by Marty: Tova Sanchez Under the Supervision of: Dr. Hair Garcia M.D. First contact with patient: 04:18 Chief Complaint: BLEEDING Stated Complaint: BLEEDING HEMIRROID Nursing Triage Summary: bleeding hemmorhoid. pt on coumadin. 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 The patient reports he was straining during bowel movements that past couple of days and thinks he may have a bleeding hemorrhoid. He states he has been using preparation H and put quick clot on his rectum to stop the bleeding. He notes he has not seen a doctor for hemorrhoids in the past. 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 He states his last Coumadin level was 1.9 and they have increased his dose. The patient denies abdominal pain. 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 A total of 6 systems reviewed and were otherwise negative. Past Medical & Surgical Medical Problems: (1) ACS (acute coronary syndrome) (2) Hypertension (3) MA (myocardial infarction) Family History Diabetes mellitus FH: lung disease FHx: cancer FHx: gallbladder disease FHx: heart disease Hypertension Kidney disease Kidney stones Social History Smoking Status: Never Smoker Alcohol Use: occasionally Drug Use: none Marital Status: Housing Status: lives with family Occupation Status: retired Current/Historical Medications Scheduled Amiodarone Hcl (Cordarone), 200 MG PO DAILY Aspirin (Aspirin Ec), 81 MG PO DAILY Carvedilol (Coreg), 3.125 MG PO DAILY Furosemide (Lasix), 20 MG PO DAILY Hydrocortisone (Rectal) (Procto-Med Hc), 1 APPLN RE BID Rosuvastatin Calcium (Crestor), 80 MG PO QPM Spironolactone (Aldactone), 25 MG PO DAILY Warfarin Sod (Jantoven), 2.5 MG PO Q2D Warfarin Sodium (Coumadin), 5 MG PO 3XWK Scheduled PRN Nitroglycerin (Nitrostat), 0.4 MG UT PRN PRN for CHEST PAIN Oxycodone Ir (Roxicodone Ir), 5 MG PO Q4 PRN for Pain Allergies Coded Allergies: No Known Allergies (Unverified , 09/30/17) Physical Exam Vital Signs Date Time Temp Pulse Resp B/P (MAP) Pulse Ox O2 Delivery O2 Flow Rate FiO2 09/30/17 05:25 54 20 107/56 95 09/30/17 04:07 36.6 62 20 137/75 96 Room Air Physical Exam GENERAL: Patient is well appearing and in no acute distress. EYES: No scleral icterus, unremarkable pupils. ENT: Mucous membranes moist, no nasal congestion. NECK: No masses appreciated, no meningismus, trachea is midline. RESPIRATORY: No dyspnea. Clear to auscultation and equal bilaterally. No wheeze , no rhonchi. CARDIOVASCULAR: Regular rate and rhythm. No murmurs, rubs, gallops appreciated. EXTREMITIES: Normal motion all extremities, no cyanosis, no edema. Calamine lotion of bilateral legs. NEUROLOGIC: Alert and oriented, no acute motor or sensory deficits, no focal weakness, cranial nerves grossly intact. SKIN: No rash, no jaundice, no diaphoresis. RECTAL: Anterior left hemorrhoid with small laceration, no active bleeding, non thrombosed, no edema. Medical Decision & Procedures Laboratory Results 09/30/17 04:34 Test 09/30/17 04:34 Red Blood Count 4.29 M/uL (4.7-6.1) Mean Corpuscular Volume 98.1 fL (80-100) Mean Corpuscular Hemoglobin 31.5 pg (25-34) Mean Corpuscular Hemoglobin Concent 32.1 g/dl (32-36) RDW Standard Deviation 51.9 fL (36.4-46.3) RDW Coefficient of Variation 14.5 % (11.5-14.5) Mean Platelet Volume 9.8 fL (7.4-10.4) Prothrombin Time 17.5 SECONDS (9.0-12.0) Prothromb Time International Ratio 1.7 (0.9-1.1) Activated Partial Thromboplast Time 33.8 SECONDS (21.0-31.0) Partial Thromboplastin Ratio 1.3 Laboratory results as reviewed by me. Medications Administered Medications (Trade) Dose Ordered Sig/Daniel Route Start Time Stop Time Status Last Admin Dose Admin Hydrocortisone (Proctozone Hc 2.5% Crm) 1 appln NOW ONCE EXT 09/30/17 04:45 09/30/17 04:46 DC 09/30/17 04:41 1 APPLN ED Course 0418: The patient was evaluated in room C12B. A complete history and physical exam was performed. 0525: Reevaluated the patient. Discussed results and discharge instructions: He verbalized understanding and agreement. The patient is ready for discharge. Medical Decision Pleasant 67 yr old male with hemorrhoid from straining last few days. On coumadin and noted some bleeding tonight. On exam there is anterior hemorrhoid with evidence small abrasions that likely was bleeder but none now. Hemorrhoid is not thrombosis. Discussed varinder-martha and if bleeding some compression. Wound avoid sutures/injections unless absolutely necessary. INR subtherapeutic and he will call his clinic today. CBC looks good. He is in no distress and wants to get home. Medication Reconcilliation Current Medication List: was personally reviewed by me Blood Pressure Screening Patient's blood pressure: Normal blood pressure Impression Primary Impression: Bleeding external hemorrhoids Scribe Attestation The scribe's documentation has been prepared under my direction and personally reviewed by me in its entirety. I confirm that the note above accurately reflects all work, treatment, procedures, and medical decision making performed by me. Departure Information Dispostion Home / Self-Care Referrals No Doctor, Assigned (PCP) Patient Instructions ED Hemorrhoids, My [facility]
[2017-09-30 04:44] LABS: HEMATOCRIT 42.1 % (42-52); HEMOGLOBIN 13.5 g/dL (14.0-18.0); MEAN CELL VOLUME 98.1 fL (80-100); MEAN CORPUSCULAR HEMOGLOBIN 31.5 pg (25-34); MEAN CORPUSCULAR HGB CONC 32.1 g/dl (32-36); MEAN PLATELET VOLUME 9.8 fL (7.4-10.4); PLATELET COUNT 215 K/uL (130-400); RED CELL DISTRIBUTION WIDTH CV 14.5 % (11.5-14.5); RED CELL DISTRIBUTION WIDTH SD 51.9 fL (36.4-46.3); WHITE BLOOD COUNT 9.24 K/uL (4.8-10.8)
[2017-09-30] MEDS ORDERED: HYDROCORTISONE HC 2.5% CRM 30GM TUBE EXT ONE (04:45)
[2017-09-30] MEDS ORDERED: HYDR2.5C37 TOP (04:58)
[2017-09-30] MEDS ORDERED: HYDR2.5C60 RE (05:01)
[2017-09-30 05:02] LABS: INR 1.7 (0.9-1.1); PTT PATIENT 33.8 SECONDS (21.0-31.0)
[2017-09-30] MEDS ORDERED: ASPI81TA28 PO (05:02)
[2017-09-30] MEDS ORDERED: WARF5TAB90 PO (05:03)
[2017-09-30] MEDS ORDERED: CMD/25 PO (05:04)
[2017-09-30] MEDS ORDERED: WARF5TAB7 PO (05:06)
[2017-09-30] MEDS ORDERED: CARV3.122 PO (05:06)
[2017-09-30] MEDS ORDERED: AMIO200T4 PO (05:07)
[2017-09-30] MEDS ORDERED: OXYC-90 PO (05:08)
[2017-09-30] MEDS ORDERED: NTRGSL/4 UT (05:09)
[2017-09-30] MEDS ORDERED: SPIR25TA PO (05:10)
[2017-09-30] MEDS ORDERED: ROSU5TAB PO (05:11)
[2017-09-30] MEDS ORDERED: ROSU40TA PO (05:12)
[2017-09-30] MEDS ORDERED: FURO-85 PO (05:12)
[2017-09-30 05:25] VITALS: BP 107/56; PULSE 54; O2SAT 95
== END 2017-09-30 05:20 | disposition home or self-care (01) ==
LOC: C.EDB 04:03 → C.EDC 05:20
DX: K64.4 Residual hemorrhoidal skin tags (principal); R79.1 Abnormal coagulation profile; I10 Essential (primary) hypertension; I25.2 Old myocardial infarction; Z79.01 Long term (current) use of anticoagulants; Z79.82 Long term (current) use of aspirin